=== PATIENT | male | born 1980 | race African-American/Black ===

== ENCOUNTER 2024-05-08 10:09 | Emergency (ER) | payer MEDICAID ==
[~2024-05-08] VITALS: Ht 182.9 cm; Wt 95.5 kg
[2024-05-08 10:40] VITALS: O2SAT 100
[2024-05-08 11:08] LABS: CLARITY URINE CLEAR (CLEAR); COLOR URINE YELLOW (YELLOW); GLUCOSE URINE NEGATIVE (NEGATIVE); KETONES URINE NEGATIVE (NEGATIVE); LEUKOCYTE ESTERASE URINE NEGATIVE (NEGATIVE); NITRITE URINE NEGATIVE (NEGATIVE); OCCULT BLOOD URINE NEGATIVE (NEGATIVE); PH URINE 6.5 (4.5-8.0); PROTEIN URINE NEGATIVE (NEGATIVE); SPECIFIC GRAVITY URINE 1.023 (1.005-1.030); UROBILINOGEN URINE 0.2 E.U./dL (0.2-1.0)
[2024-05-08 11:14] VITALS: BP 148/88; PULSE 70; RESP 18; TEMP 36.7; O2SAT 100
[2024-05-10 04:07] LABS: CHLAMYDIA TRACHOMATIS NAA Negative (Negative); NEISSERIA GONORRHOEAE NAA Negative (Negative)
== END 2024-05-08 11:21 | disposition home or self-care (01) ==
LOC: ER 10:09
DX: Z11.3 Encounter for screening for infections with a predominantly sexual mode of transmission (principal); J45.909 Unspecified asthma, uncomplicated
CPT/HCPCS: 81003; 87491; 87591; 99283